=== PATIENT | female | born 1975 | race Caucasian/White ===

== ENCOUNTER → 2024-05-26 | Outpatient (CLI) | payer OTHER ==
[~2024-05-26] MED LIST: ACET500 PO; ATOR40TA PO; CETI5 PO; DOXY100 PO; FLONASE ALLERG9.9 ML; IBUP800 PO; METF500 PO; NAPR220 PO; NAPR500; PRAV20; SERT50; Synthroid/Levo0.1 MG PO
== END | disposition home or self-care (01) ==
LOC: LAB SHORT 09:34 → LAB 09:34
DX: R30.0 Dysuria (principal)
CPT/HCPCS: 87086